=== PATIENT | female | born 1990 | race Caucasian/White ===

== ENCOUNTER 2020-01-30 07:41 | Emergency (ER) | payer MEDICAID, OTHER ==
[~2020-01-30] VITALS: Ht 160 cm; Wt 105.0 kg
[2020-01-30] MEDS ORDERED: MORPHINE SULFATE 4 MG/ML CPJ (NOT FOR IM USE) IV STA (08:08)
[2020-01-30] MEDS ORDERED: ONDANSETRON HCL 4MG/2ML INJ IV STA (08:08)
[2020-01-30] MEDS ORDERED: SODIUM CHLORIDE 0.9% 1,000 ML IV ONE (08:08)
[2020-01-30] MEDS ORDERED: VISCOUS LIDOCAINE 2% 15 ML UDC PO STA (08:44)
[2020-01-30] MEDS ORDERED: DICYCLOMINE 10 MG/5 ML ORAL SYR PO STA (08:44)
[2020-01-30] MEDS ORDERED: MAGNESIUM/ALUMINUM HYDROXIDE/SIMETHICONE 30ML UDC PO STA (08:44)
[2020-01-30 09:30] LABS: BASOPHILS % 0.8 % (0.0-2.0); EOSINOPHILS % 0.9 % (0.0-5.0); HEMOGLOBIN. 12.1 g/dL (12.0-16.0); LYMPHOCYTES % 15.8 % (20.0-50.0); MEAN CORPUSCULAR HEMOGLOBIN 27.8 pg (28.0-32.0); MEAN CORPUSCULAR VOLUME 84.9 fL (81.0-99.0); MEAN PLATELET VOLUME 8.2 fl (7.4-10.4); MONOCYTES % 8.3 % (2.0-8.0); NEUTROPHILS % 74.2 % (40.0-76.0); PLATELET 287 x1000/uL (130-400); RED BLOOD CELL COUNT 4.36 mill/uL (4.2-5.4); RED CELL DISTRIBUTION WIDTH 14.3 % (11.6-14.6)
[2020-01-30 09:32] LABS: CLARITY URINE CLEAR (CLEAR); COLOR URINE YELLOW (YELLOW); KETONES URINE NEGATIVE (NEGATIVE); LEUKOCYTE ESTERASE URINE NEGATIVE (NEGATIVE); NITRITE URINE NEGATIVE (NEGATIVE); OCCULT BLOOD URINE NEGATIVE (NEGATIVE); PH URINE >=9.0 (4.5-8.0); PROTEIN URINE NEGATIVE (NEGATIVE); SPECIFIC GRAVITY URINE 1.019 (1.005-1.030); UROBILINOGEN URINE 0.2 E.U./dL (0.2-1.0)
[2020-01-30 09:39] LABS: CHLORIDE 102 mEq/L (98-107)
[2020-01-30 09:48] LABS: HCG SCREEN NEGATIVE; PROTHROMBIN TIME 10.5 sec (9.6-11.0)
[2020-01-30] MEDS ORDERED: MORPHINE SULFATE 4 MG/ML CPJ (NOT FOR IM USE) IV ONE (11:15)
[2020-01-30] MEDS ORDERED: CEFAZOLIN 1000MG PREMIX 50 ML IV ONE (12:45)
[2020-01-30 14:00] VITALS: BP 131/76
== END 2020-01-30 14:25 | disposition short-term general hospital (02) ==
LOC: ER 07:41 → CANBEDREQ 17:14
DX: K81.9 Cholecystitis, unspecified (principal); D72.829 Elevated white blood cell count, unspecified; E87.1 Hypo-osmolality and hyponatremia
CPT/HCPCS: 36415; 76700; 80053; 81003; 81025; 83605; 83690; 84703; 85025; 85610; 93005; 96361; 96365; 96375; 96376; 99285; J0690; J2270; J2405; J7030